=== PATIENT | female | born 2000 | race Two or more races ===

== ENCOUNTER 2019-10-13 00:08 | Emergency (ER) | payer OTHER ==
[~2019-10-13] VITALS: Ht 165.1 cm; Wt 77.3 kg
[2019-10-13] MEDS ORDERED: PROPARACAINE HCL 0.5% 15 ML OPHTHALMIC SOLUTION ONE (00:35)
[2019-10-13] MEDS ORDERED: PROPARACAINE HCL 0.5% 15 ML OPHTHALMIC SOLUTION OD ONE (00:45)
[2019-10-13] MEDS ORDERED: DiphenhydrAMINE HCL 25 MG CAPSULE PO ONE (01:45)
[2019-10-13 02:27] VITALS: BP 119/68
== END 2019-10-13 02:44 | disposition home or self-care (01) ==
LOC: EMS 00:10
DX: H10.11 Acute atopic conjunctivitis, right eye (principal); R42 Dizziness and giddiness

== ENCOUNTER → 2021-03-23 | Emergency (ER) | payer MEDICAID, OTHER ==
[~2021-03-23] VITALS: Ht 165.1 cm; Wt 70.5 kg
[~2021-03-23] MED LIST: ACETAMINOPHEN 325 MG TABLET PO ONE
[2021-03-23 18:36] VITALS: BP 122/60
[2021-03-23 20:10] LABS: COVID AG,FIA SOURCE NASOPHARYNGEAL
== END | disposition home or self-care (01) ==
LOC: EMS 18:04
DX: B34.9 Viral infection, unspecified (principal); Z20.822 Contact with and (suspected) exposure to COVID-19
CPT/HCPCS: 87426; 99283; U0003